=== PATIENT | female | born 1970 | race Caucasian/White ===

== ENCOUNTER 2019-07-23 13:32 | Emergency (ER) | payer OTHER ==
[~2019-07-23] VITALS: Ht 154.9 cm; Wt 65.8 kg
[~2019-07-23 13:32] MED LIST: CIPRO500 MG PO; CLONAZEPAM1 MG; DILANTIN100 MG PO; DILANTIN30 MG; FIORICET 50-301 EACH; KEPPRA1000 MG; LEVSIN/SL0.125 MG SL; PEPCID40 MG PO; PNEU16DI2; SINGULAIR10 MG; ZOFRAN8 MG PO
[2019-07-23] MEDS ORDERED: VISTARIL25 MG PO (13:50)
[2019-07-23] MEDS ORDERED: MEDROLPACK PO (16:50)
== END 2019-07-23 16:57 | disposition home or self-care (01) ==
LOC: ER 13:32
DX: B34.9 Viral infection, unspecified (principal)

== ENCOUNTER 2019-08-22 20:06 | Emergency (ER) | payer OTHER ==
[~2019-08-22] VITALS: Ht 154.9 cm; Wt 68.0 kg
[~2019-08-22 20:06] MED LIST changes: +MEDROLPACK PO; +VISTARIL25 MG PO
[2019-08-22] MEDS ORDERED: OMEPRAZOLE MAGN20 MG (20:15)
== END 2019-08-22 21:28 | disposition home or self-care (01) ==
LOC: ER 20:06
DX: S40.012A Contusion of left shoulder, initial encounter (principal); S70.02XA Contusion of left hip, initial encounter; S50.02XA Contusion of left elbow, initial encounter; S30.0XXA Contusion of lower back and pelvis, initial encounter; W18.09XA Striking against other object with subsequent fall, initial encounter; Y93.89 Activity, other specified; Y92.018 Other place in single-family (private) house as the place of occurrence of the external cause; Y99.8 Other external cause status

== ENCOUNTER 2019-11-02 14:25 | Emergency (ER) | payer OTHER ==
[~2019-11-02] VITALS: Ht 154.9 cm; Wt 68.0 kg
[~2019-11-02 14:25] MED LIST changes: +OMEPRAZOLE MAGN20 MG
[2019-11-02] MEDS ORDERED: CLONAZEPAM1 MG (15:25)
[2019-11-02] MEDS ORDERED: SINGULAIR10 MG (15:25)
[2019-11-02] MEDS ORDERED: LEVSIN/SL0.125 MG SL (20:59)
[2019-11-02] MEDS ORDERED: CARAFATE1 GM PO (20:59)
[2019-11-02] MEDS ORDERED: PEPCID AC20 MG PO (20:59)
== END 2019-11-02 21:23 | disposition home or self-care (01) ==
LOC: ER 14:25
DX: K29.70 Gastritis, unspecified, without bleeding (principal)